=== PATIENT | female | born 1955 | race Caucasian/White ===

== ENCOUNTER 2019-03-11 08:53 | Emergency (ER) | payer OTHER ==
[2019-03-11] MEDS ORDERED: TETANUS,DIPHTHERIA,PERTUSSIS 1 EA SYG IM ONE (09:07)
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
[2019-03-11 11:20] VITALS: BP 118/64; TEMP 97.6; O2SAT 98
== END 2019-03-11 10:55 | disposition home or self-care (01) ==
LOC: ER 08:53
DX: S01.111A Laceration without foreign body of right eyelid and periocular area, initial encounter (principal); V47.5XXA Car driver injured in collision with fixed or stationary object in traffic accident, initial encounter; Y92.9 Unspecified place or not applicable

== ENCOUNTER → 2019-07-16 | Outpatient (CLI) | payer MEDICARE, OTHER ==
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
== END ==
LOC: US 11:14
PROVIDERS: ATTEND Family Medicine
DX: R22.0 Localized swelling, mass and lump, head (principal)